=== PATIENT | male | born 1960 | race Caucasian/White ===

== ENCOUNTER → 2016-09-24 | Emergency (ER) | payer MEDICAID ==
[~2016-09-24] MED LIST: ASPIRIN 81 MG TABLET CHEW ONE; POTASSIUM CHLORIDE 20 MEQ TAB.ER.PRT ONE
[2016-09-27 10:45] LABS: BLOOD UREA NITROGEN 7 mg/dL (7-18)
[2016-09-27 10:46] LABS: IS PT STATUS REG ER OR PRE ER? YES
[2016-09-27 10:47] LABS: IS PT STATUS REG ER OR PRE ER? YES
== END ==
LOC: ED 12:02
DX: R07.89 Other chest pain (principal); E87.6 Hypokalemia; I10 Essential (primary) hypertension; F10.20 Alcohol dependence, uncomplicated
CPT/HCPCS: 36415; 71020; 80048; 82040; 84484; 85025; 93005; 99285

== ENCOUNTER 2016-10-30 21:59 | Emergency (ER) | payer MEDICAID ==
[~2016-10-30] VITALS: Ht 182.9 cm; Wt 85.0 kg
[2016-10-30] MEDS ORDERED: SODIUM CHLORIDE 0.9% 1,000ML IVBOLUS ONE (23:00)
[2016-10-30] MEDS ORDERED: PANTOPRAZOLE 80 MG in SODIUM CHLORIDE 0.9% 50 ML IV ONE (23:00)
[2016-10-30] MEDS ORDERED: ONDANSETRON 2MG/ML, 2ML IVPush ONE (23:00)
[2016-10-30] MEDS ORDERED: MAALOX/HYOSCYAMINE/LIDOCAINE 45 ML BOTTLE PO ONE ×2 (23:00→23:30)
[2016-10-30 23:06] LABS: ASPARTATE AMINO TRANSFERASE 37 U/L (15-37); BLOOD UREA NITROGEN 6 mg/dL (7-18)
[2016-10-30] MEDS ORDERED: MAALOX/HYOSCYAMINE/LIDOCAINE 45 ML BOTTLE ONE (23:22)
[2016-10-30] MEDS ORDERED: ONDANSETRON 2MG/ML, 2ML ONE (23:22)
[2016-10-31 01:03] VITALS: BP 100/69
== END 2016-10-31 01:07 | disposition home or self-care (01) ==
LOC: ED 23:59
DX: K29.20 Alcoholic gastritis without bleeding (principal); R10.13 Epigastric pain; F10.229 Alcohol dependence with intoxication, unspecified; I10 Essential (primary) hypertension; E87.6 Hypokalemia; F10.220 Alcohol dependence with intoxication, uncomplicated
CPT/HCPCS: 36415; 80053; 80307; 83690; 85025; 96365; 96375; 99284; C9113; J2405; J7030